=== PATIENT | female | born 1985 | race Caucasian/White ===

== ENCOUNTER 2018-07-22 22:53 | Emergency (ER) | payer OTHER, MEDICAID, SELFPAY ==
[2018-07-22] MEDS: HYDROMORPHONE HCL 0.5 MG/ 0.5 ML SYRINGE (J1170 PER 1) IV (23:15)
== END 2018-07-23 00:24 | disposition home or self-care (01) ==
LOC: M ED 07-23 00:24
DX: S50.11XA Contusion of right forearm, initial encounter (principal); W10.8XXA Fall (on) (from) other stairs and steps, initial encounter; Y92.098 Other place in other non-institutional residence as the place of occurrence of the external cause; Z88.8 Allergy status to other drugs, medicaments and biological substances; Z88.5 Allergy status to narcotic agent
CPT/HCPCS: J1170

== ENCOUNTER 2019-06-10 21:43 | Emergency (ER) | payer OTHER ==
[~2019-06-10] VITALS: Ht 157.5 cm; Wt 81.8 kg
[2019-06-10] MEDS ORDERED: IPRATROPIUM 0.5MG/ALBUTEROL 2.5MG INH SOL UD 3ML (DUONEB)(J7620) NEB ONE (23:15)
[2019-06-11 00:04] VITALS: BP 142/81
[2019-06-11] MEDS ORDERED: MUCI600T31 PO (00:49)
[2019-06-11] MEDS ORDERED: VENTAER INH (00:49)
[2019-06-11] MEDS ORDERED: PRED10TA2 PO (00:49)
[2019-06-11] MEDS ORDERED: AZIT500T2 PO (00:49)
[2019-06-11] MEDS ORDERED: predniSONE 20 MG TAB PO ONE (01:00)
[2019-06-11] MEDS ORDERED: AZITHROMYCIN 250 MG TAB PO ONE (01:00)
--- NOTE | 2019-06-11 08:10 | REP ---
Clinical: Cough. Technique: PA and lateral. Comparison: None. Findings: Suspected hilar adenopathy and subtle bibasilar atelectasis/infiltrates. No effusion. No pneumothorax. Cardiac silhouette normal. Impression: Adenopathy and suspected bibasilar infiltrates. Follow-up to resolution. Electronically Signed by Dejan Truong MD 06/11/2019 08:01 A
== END 2019-06-11 01:04 | disposition home or self-care (01) ==
LOC: M ED 21:43
DX: J18.1 Lobar pneumonia, unspecified organism (principal); J42 Unspecified chronic bronchitis; R59.9 Enlarged lymph nodes, unspecified; J98.4 Other disorders of lung; Z72.0 Tobacco use; Z88.6 Allergy status to analgesic agent; Z88.8 Allergy status to other drugs, medicaments and biological substances